=== PATIENT | male | born 1980 | race Caucasian/White ===

== ENCOUNTER 2016-09-02 13:04 | Inpatient (IN) | payer SELFPAY ==
[2016-09-02] VITALS (36 sets, daily range): BP systolic 79–133; RESP 0–24; TEMP 95.6–100.7; Ht 188 cm; Wt 87.1 kg
[~2016-09-02] VITALS: Ht 188 cm; Wt 87.1 kg
[2016-09-02] MEDS ORDERED: MULTIVITS ADULT INJ 10 ML in SODIUM CHLORIDE 0.9% 1,000 ML IV ONE (14:35)
[2016-09-02] MEDS ORDERED: FOLIC ACID INJ 1 MG in SODIUM CHLORIDE 0.9% 50 ML IV ONE (14:35)
[2016-09-02] MEDS ORDERED: SALINE FLUSH 10 ML FLUSH PRN (14:35)
[2016-09-02] MEDS ORDERED: SODIUM CHLORIDE 0.9% 1,000 ML IV SCH (14:35)
[2016-09-02] MEDS ORDERED: ONDANSETRON 4 MG TAB PO PRN (14:35)
[2016-09-02] MEDS ORDERED: LANSOPRAZOLE 30 MG SOLUTAB NG SCH (14:35)
[2016-09-02] MEDS ORDERED: NEB-XOPENEX 1.25 MG/3 ML INH PRN (14:35)
[2016-09-02] MEDS ORDERED: LORAZEPAM 2 MG/ML VIAL IV PRN (14:35)
[2016-09-02] MEDS ORDERED: D5-1/2-NS W/KCL 20MEQ/L 1,000 ML IV SCH (14:35)
[2016-09-02] MEDS ORDERED: GLUCAGON 1 MG VIAL IM PRN (14:50)
[2016-09-02] MEDS ORDERED: DEXTROSE 50% SYRINGE 50 ML IV PRN (14:50)
[2016-09-02] MEDS ORDERED: SODIUM CHLORIDE 0.9% 1,000 ML ONE (14:57)
[2016-09-02] MEDS: DUONEB INH SCH ×4 (15:00→22:25)
[2016-09-02] MEDS ORDERED: LACT RINGERS 1,000 ML IV ONE (15:30)
[2016-09-02] MEDS ORDERED: SODIUM PHOSPHATE 30 MM in SODIUM CHLORIDE 0.9% 250 ML IV ONE (17:00)
[2016-09-02] MEDS ORDERED: SODIUM CHLORIDE 0.9% 1,000 ML IV ONE ×2 (17:15→17:45)
[2016-09-02] MEDS ORDERED: PHARMACY TO DOSE ZOSYN IV SCH (17:55)
[2016-09-02] MEDS ORDERED: PHARMACY TO DOSE VANCOMYCIN IV SCH (17:55)
[2016-09-02] MEDS: THIAMINE 100 MG in SODIUM CHLORIDE 0.9% 50 ML IV SCH (18:09)
[2016-09-02] MEDS ORDERED: VANCOMYCIN 1,750 MG in SODIUM CHLORIDE 0.9% 500 ML IV SCH (19:00)
[2016-09-02] MEDS: SALINE FLUSH 10 ML FLUSH SCH (19:47)
[2016-09-02] MEDS: PIPERACIL/TAZO 4.5GM/100ML 100 ML IV SCH (19:47)
[2016-09-02] MEDS: VANCOMYCIN 1,250 MG in SODIUM CHLORIDE 0.9% 250 ML IV SCH (20:26)
[2016-09-02] MEDS: PROPOFOL 100 ML 100 ML IV PRN (21:52)
[2016-09-02] MEDS: CHLORHEXIDINE 0.12% ORAL CARE FOR VENT PATIENTS 15 ML SWAB SCH (23:37)
[2016-09-02] MEDS: D5-1/2-NS W/KCL 20MEQ/L 1,000 ML IV SCH (23:48)
[2016-09-03] VITALS (66 sets, daily range): BP systolic 99–157; RESP 12–27; TEMP 98–100.8
[2016-09-03] MEDS: PIPERACIL/TAZO 4.5GM/100ML 100 ML IV SCH ×2 (00:33→05:30)
[2016-09-03] MEDS: VANCOMYCIN 1,250 MG in SODIUM CHLORIDE 0.9% 250 ML IV SCH (03:43)
[2016-09-03] MEDS: SODIUM CHLORIDE 0.9% FLUSH BAG 500 ML IV SCH (05:08)
[2016-09-03] MEDS: PROPOFOL 100 ML 100 ML IV PRN (05:25)
[2016-09-03] MEDS: LANSOPRAZOLE 15 MG NG SCH (06:13)
[2016-09-03] MEDS: D5-1/2-NS W/KCL 20MEQ/L 1,000 ML IV SCH ×2 (06:17→16:09)
[2016-09-03] MEDS: DUONEB INH SCH ×4 (06:23→22:45)
[2016-09-03] MEDS ORDERED: Furosemide 40 MG/4 ML VIAL IV ONE (07:40)
[2016-09-03] MEDS ORDERED: D5-1/2-NS W/KCL 20MEQ/L 1,000 ML IV SCH (07:40)
[2016-09-03] MEDS: FOLIC ACID 1 MG TAB NG SCH (08:30)
[2016-09-03] MEDS: MULTIVITS/MINERALS (THERAGRAN M) TAB NG SCH (08:30)
[2016-09-03] MEDS: SALINE FLUSH 10 ML FLUSH SCH ×2 (08:30→21:32)
[2016-09-03] MEDS: THIAMINE 100 MG in SODIUM CHLORIDE 0.9% 50 ML IV SCH (08:53)
[2016-09-03] MEDS: CHLORHEXIDINE 0.12% ORAL CARE FOR VENT PATIENTS 15 ML SWAB SCH (12:00)
[2016-09-04 03:52] VITALS: BP_SYST 150; RESP 18; TEMP 98.8
[2016-09-04] MEDS: SODIUM CHLORIDE 0.9% FLUSH BAG 500 ML IV SCH (06:00)
[2016-09-04] MEDS: LANSOPRAZOLE 15 MG NG SCH (06:45)
[2016-09-04] MEDS: D5-1/2-NS W/KCL 20MEQ/L 1,000 ML IV SCH (06:45)
[2016-09-04] MEDS: DUONEB INH SCH (07:19)
[2016-09-04 07:51] VITALS: BP_SYST 151; RESP 16; TEMP 98.5
[2016-09-04] MEDS: SALINE FLUSH 10 ML FLUSH SCH (08:00)
[2016-09-04] MEDS: THIAMINE 100 MG in SODIUM CHLORIDE 0.9% 50 ML IV SCH (08:37)
[2016-09-04] MEDS: FOLIC ACID 1 MG TAB NG SCH (08:37)
[2016-09-04] MEDS: MULTIVITS/MINERALS (THERAGRAN M) TAB NG SCH (08:37)
[2016-09-04 11:21] VITALS: BP_SYST 162; RESP 16; TEMP 97.9
[2016-09-04] MEDS: CHLORHEXIDINE 0.12% ORAL CARE FOR VENT PATIENTS 15 ML SWAB SCH ×2 (11:43)
[2016-09-04 15:43] VITALS: BP_SYST 138; TEMP 98.2
[2016-09-04 15:44] VITALS: RESP 16
[2016-09-04 18:09] VITALS: BP_SYST 138; RESP 16; TEMP 98.2
== END 2016-09-04 18:37 | disposition home or self-care (01) | DRG 917 ==
LOC: ENRESERVDT → ENRESERVTM → ER 13:04 → ENPENDDIS 14:49 → EMR 14:49 → CCU 16:02 → 3NT 09-03 17:04
PROVIDERS: ADMIT Family Medicine; ATTEND Family Medicine
PROC: 5A1935Z Respiratory Ventilation, Less than 24 Consecutive Hours (ICD-10-PCS; principal; 2016-09-02)
PROC: 0BH17EZ Insertion of Endotracheal Airway into Trachea, Via Natural or Artificial Opening (ICD-10-PCS; 2016-09-02)
DX: T42.4X2A Poisoning by benzodiazepines, intentional self-harm, initial encounter (principal); J96.01 Acute respiratory failure with hypoxia; G93.41 Metabolic encephalopathy; F41.9 Anxiety disorder, unspecified; F32.9 Major depressive disorder, single episode, unspecified; F10.129 Alcohol abuse with intoxication, unspecified; Z83.3 Family history of diabetes mellitus; Z82.49 Family history of ischemic heart disease and other diseases of the circulatory system
CPT/HCPCS: 36415; 51702; 70450; 71010; 80048; 80053; 80307; 80320; 80329; 81003; 82550; 82803; 82947; 83036; 83605; 83735; 83880; 84100; 84145; 84439; 84443; 84484; 85025; 85610; 85730; 87040; 87071; 87088; 93005; 94002; 94003; 94640; 94799; 99232; 99239; 99291